=== PATIENT | male | born 1965 | race Caucasian/White ===

== ENCOUNTER 2022-02-27 15:03 | Emergency (ER) | payer MEDICAID ==
[~2022-02-27] VITALS: Ht 177.8 cm; Wt 89.8 kg
[~2022-02-27 15:03] MED LIST: MULT-1074 PO; OLIV250C PO; SALM1CAP4 PO; TUMERIC PO; VIT D3 PO; [UNRECOGNIZED DRUG - OTHER] PO
[2022-02-28] MEDS ORDERED: CIPR-202 PO (00:57)
[2022-02-28] MEDS ORDERED: ciprofloxacin 250mg tablet PO ONE (01:00)
[2022-02-28 01:24] VITALS: BP 152/91
== END 2022-02-28 01:26 | disposition home or self-care (01) ==
LOC: ER 15:03
DX: J06.9 Acute upper respiratory infection, unspecified (principal); Z88.0 Allergy status to penicillin
CPT/HCPCS: 93005; 99283